=== PATIENT | female | born 1935 | race African-American/Black ===

== ENCOUNTER 2020-03-17 21:03 | Inpatient (IN) | payer OTHER ==
[~2020-03-17] VITALS: Ht 149.9 cm; Wt 109.3 kg
[2020-03-17] MEDS ORDERED: DEXAMETHASONE 4MG/ML 1ML VIAL IV ONE (23:30)
[2020-03-18 02:07] LABS: EOSINOPHILS % 0.7 % (0.0-5.0); HEMATOCRIT. 37.5 % (36.0-48.0); MEAN CORPUSCULAR HEMOGLOBIN 27.6 pg (28.0-32.0); MEAN CORPUSCULAR VOLUME 86.1 fL (81.0-99.0); MEAN PLATELET VOLUME 9.3 fl (7.4-10.4); MONOCYTES % 6.3 % (2.0-8.0); PLATELET 266 x1000/uL (130-400); RED BLOOD CELL COUNT 4.36 mill/uL (4.2-5.4); RED CELL DISTRIBUTION WIDTH 13.7 % (11.6-14.6)
[2020-03-18 02:30] LABS: CHLORIDE 110 mEq/L (98-107)
[2020-03-18] MEDS ORDERED: ENOXAPARIN 40MG/0.4ML SYR SUBCUT SCH (10:30)
[2020-03-18] MEDS ORDERED: ALBUTEROL 6.7GM HFA INHALER ORI PRN (10:30)
[2020-03-18] MEDS ORDERED: GUAIFENESIN 200MG/10ML SUGAR FREE UDC PO PRN (10:30)
[2020-03-18] MEDS ORDERED: DEXTROSE 50% WATER 50ML SYRINGE IV PRN (10:30)
[2020-03-18] MEDS ORDERED: AZITHROMYCIN 500 MG in DEXT 5% WATER 250 ML IV SCH (10:30)
[2020-03-18] MEDS ORDERED: DIPHENHYDRAMINE 50MG/ML VIAL IV PRN (10:30)
[2020-03-18] MEDS ORDERED: MAGNESIUM/ALUMINUM HYDROXIDE/SIMETHICONE 30ML UDC PO PRN (10:30)
[2020-03-18] MEDS ORDERED: LORAZEPAM 2MG/ML CPJ IV PRN (10:30)
[2020-03-18] MEDS ORDERED: CEFTRIAXONE 1 G PREMIX 50 ML IV SCH (10:30)
[2020-03-18] MEDS ORDERED: ONDANSETRON HCL 4MG/2ML INJ IV PRN (10:30)
[2020-03-18] MEDS ORDERED: DOCUSATE SODIUM 100MG CAPSULE PO PRN (10:30)
[2020-03-18] MEDS ORDERED: ENOXAPARIN 80MG/0.8ML SYR SUBCUT NR (12:45)
[2020-03-18] MEDS: CEFTRIAXONE 1,000 MG in DEXTROSE 5% WATER 50 ML IV SCH (13:00)
[2020-03-18] MEDS: INSULIN LISPRO 100 UNITS/ML SUBCUT SCH ×2 (13:20→21:18)
[2020-03-18] MEDS: BLOOD SUGAR DIAGNOSTIC STRIP TEST SCH ×2 (13:44→19:30)
[2020-03-18] MEDS: SODIUM CHLORIDE 0.9% INJ 3ML FLUSH IVF SCH (14:00)
[2020-03-19] MEDS: BLOOD SUGAR DIAGNOSTIC STRIP TEST SCH ×3 (02:12→22:06)
[2020-03-19] MEDS: INSULIN LISPRO 100 UNITS/ML SUBCUT SCH ×2 (02:12→22:37)
[2020-03-19] MEDS: SODIUM CHLORIDE 0.9% INJ 3ML FLUSH IVF SCH ×4 (02:13→21:54)
[2020-03-19 08:49] LABS: BASOPHILS % 0.4 % (0.0-2.0); EOSINOPHILS % 0.1 % (0.0-5.0); HEMATOCRIT. 34.6 % (36.0-48.0); HEMOGLOBIN. 11.6 g/dL (12.0-16.0); LYMPHOCYTES % 14.5 % (20.0-50.0); MEAN CORPUSCULAR HEMOGLOBIN 29.2 pg (28.0-32.0); MEAN CORPUSCULAR VOLUME 86.8 fL (81.0-99.0); MEAN PLATELET VOLUME 9.7 fl (7.4-10.4); MONOCYTES % 6.7 % (2.0-8.0); NEUTROPHILS % 78.3 % (40.0-76.0); PLATELET 287 x1000/uL (130-400); RED BLOOD CELL COUNT 3.99 mill/uL (4.2-5.4); RED CELL DISTRIBUTION WIDTH 13.8 % (11.6-14.6)
[2020-03-19 08:59] LABS: CHLORIDE 107 mEq/L (98-107)
[2020-03-19] MEDS ORDERED: ENOXAPARIN 40MG/0.4ML SYR SUBCUT SCH (09:00)
[2020-03-19] MEDS: CEFTRIAXONE 1,000 MG in DEXTROSE 5% WATER 50 ML IV SCH (18:14)
[2020-03-19] MEDS: MORPHINE SULFATE 2 MG/ML CPJ (NOT FOR IM USE) IV PRN (23:38)
[2020-03-20] MEDS: HYDROCODONE/ACETAMINOPHEN 5/325MG TABLET PO PRN (06:46)
[2020-03-20] MEDS: BLOOD SUGAR DIAGNOSTIC STRIP TEST SCH ×4 (07:28→21:40)
[2020-03-20] MEDS: INSULIN LISPRO 100 UNITS/ML SUBCUT SCH ×4 (07:28→21:39)
[2020-03-20] MEDS: SODIUM CHLORIDE 0.9% INJ 3ML FLUSH IVF SCH ×3 (07:35→21:38)
[2020-03-20] MEDS: AZITHROMYCIN 500MG in DEXTROSE 5% WATER 250ML IV SCH (09:30)
[2020-03-20] MEDS: ENOXAPARIN 30MG/0.3ML SYR SUBCUT SCH (09:30)
[2020-03-20 16:00] VITALS: BP_SYST 178; BP_SYST 189; BP_DIAS 64
[2020-03-20] MEDS: CEFTRIAXONE 1,000 MG in DEXTROSE 5% WATER 50 ML IV SCH (17:13)
[2020-03-20] MEDS: CLONIDINE 0.1MG TABLET PO PRN (17:18)
[2020-03-20 17:30] VITALS: BP 159/64
[2020-03-20 20:00] VITALS: BP_SYST 128; BP_SYST 168; BP_DIAS 51; BP_DIAS 71
[2020-03-20] MEDS: MORPHINE SULFATE 2 MG/ML CPJ (NOT FOR IM USE) IV PRN (21:38)
[2020-03-21] VITALS (7 sets, daily range): BP systolic 135–178; BP diastolic 60–83
[2020-03-21] MEDS: DEXAMETHASONE 10 MG/ML VIAL IV SCH ×2 (03:27→08:12)
[2020-03-21] MEDS: SODIUM CHLORIDE 0.9% INJ 3ML FLUSH IVF SCH ×3 (05:43→21:51)
[2020-03-21] MEDS: BLOOD SUGAR DIAGNOSTIC STRIP TEST SCH ×4 (07:29→21:31)
[2020-03-21 08:05] LABS: BASOPHILS % 0.2 % (0.0-2.0); EOSINOPHILS % 0.6 % (0.0-5.0); HEMATOCRIT. 34.8 % (36.0-48.0); HEMOGLOBIN. 11.5 g/dL (12.0-16.0); LYMPHOCYTES % 11.1 % (20.0-50.0); MEAN CORPUSCULAR VOLUME 87.5 fL (81.0-99.0); MEAN PLATELET VOLUME 9.6 fl (7.4-10.4); NEUTROPHILS % 85.1 % (40.0-76.0); PLATELET 274 x1000/uL (130-400); RED BLOOD CELL COUNT 3.98 mill/uL (4.2-5.4); RED CELL DISTRIBUTION WIDTH 13.8 % (11.6-14.6)
[2020-03-21] MEDS: ENOXAPARIN 30MG/0.3ML SYR SUBCUT SCH (08:13)
[2020-03-21] MEDS: AZITHROMYCIN 500MG in DEXTROSE 5% WATER 250ML IV SCH (08:13)
[2020-03-21] MEDS: INSULIN LISPRO 100 UNITS/ML SUBCUT SCH ×4 (08:14→21:51)
[2020-03-21] MEDS: CEFTRIAXONE 1,000 MG in DEXTROSE 5% WATER 50 ML IV SCH (12:03)
[2020-03-21] MEDS: HYDROCODONE/ACETAMINOPHEN 5/325MG TABLET PO PRN (17:01)
[2020-03-22] VITALS (8 sets, daily range): BP systolic 135–212; BP diastolic 57–90
[2020-03-22] MEDS: SODIUM CHLORIDE 0.9% INJ 3ML FLUSH IVF SCH ×3 (06:04→22:16)
[2020-03-22] MEDS: CLONIDINE 0.1MG TABLET PO PRN ×2 (06:04→13:55)
[2020-03-22] MEDS: BLOOD SUGAR DIAGNOSTIC STRIP TEST SCH ×4 (06:33→22:15)
[2020-03-22] MEDS: INSULIN LISPRO 100 UNITS/ML SUBCUT SCH ×4 (06:54→22:31)
[2020-03-22] MEDS: AZITHROMYCIN 500 MG TABLET PO SCH (08:08)
[2020-03-22] MEDS: DEXAMETHASONE 10 MG/ML VIAL IV SCH (08:08)
[2020-03-22] MEDS: ENOXAPARIN 40MG/0.4ML SYR SUBCUT SCH (08:08)
[2020-03-22] MEDS ORDERED: CLONIDINE 0.2MG TABLET PO SCH (15:45)
[2020-03-22] MEDS ORDERED: HYDRALAZINE 20MG/ML VIAL IV NR (18:00)
[2020-03-22] MEDS: HYDRALAZINE HCL 50MG TABLET PO SCH (22:14)
[2020-03-22] MEDS: AMLODIPINE 5MG TABLET PO SCH (22:15)
[2020-03-23] VITALS (7 sets, daily range): BP systolic 112–188; BP diastolic 56–80
[2020-03-23] MEDS: SODIUM CHLORIDE 0.9% INJ 3ML FLUSH IVF SCH ×3 (06:46→21:15)
[2020-03-23] MEDS: HYDRALAZINE HCL 50MG TABLET PO SCH (06:47)
[2020-03-23] MEDS: BLOOD SUGAR DIAGNOSTIC STRIP TEST SCH ×4 (06:47→21:15)
[2020-03-23] MEDS: DEXAMETHASONE 10 MG/ML VIAL PO SCH (08:57)
[2020-03-23] MEDS: AMLODIPINE 5MG TABLET PO SCH ×2 (08:57→21:15)
[2020-03-23] MEDS: ENOXAPARIN 40MG/0.4ML SYR SUBCUT SCH (08:58)
[2020-03-23] MEDS: AZITHROMYCIN 500 MG TABLET PO SCH (08:58)
[2020-03-23] MEDS: INSULIN LISPRO 100 UNITS/ML SUBCUT SCH ×4 (09:03→21:16)
[2020-03-23] MEDS ORDERED: AMLODIPINE 5MG TABLET PO SCH (10:00)
[2020-03-23] MEDS: HYDRALAZINE HCL 25MG TABLET PO SCH ×2 (13:04→21:15)
[2020-03-23] MEDS: ACETAMINOPHEN 325MG TABLET PO PRN (21:40)
[2020-03-24] VITALS: BP 149/65
[2020-03-24 04:00] VITALS: BP 170/79
[2020-03-24] MEDS: HYDRALAZINE HCL 25MG TABLET PO SCH ×3 (05:28→22:11)
[2020-03-24] MEDS: SODIUM CHLORIDE 0.9% INJ 3ML FLUSH IVF SCH ×3 (05:35→22:10)
[2020-03-24] MEDS: BLOOD SUGAR DIAGNOSTIC STRIP TEST SCH ×4 (06:57→21:00)
[2020-03-24 08:00] VITALS: BP 180/81
[2020-03-24] MEDS: CLONIDINE 0.1MG TABLET PO PRN (09:35)
[2020-03-24] MEDS: AMLODIPINE 5MG TABLET PO SCH ×2 (09:35→22:11)
[2020-03-24] MEDS: DEXAMETHASONE 10 MG/ML VIAL PO SCH (09:35)
[2020-03-24] MEDS: ENOXAPARIN 40MG/0.4ML SYR SUBCUT SCH (09:36)
[2020-03-24] MEDS: INSULIN LISPRO 100 UNITS/ML SUBCUT SCH ×5 (09:44→23:41)
[2020-03-24 20:00] VITALS: BP 136/47
[2020-03-25] MEDS: SODIUM CHLORIDE 0.9% INJ 3ML FLUSH IVF SCH ×3 (06:01→22:00)
[2020-03-25] MEDS: HYDRALAZINE HCL 25MG TABLET PO SCH ×3 (06:02→22:18)
[2020-03-25 08:00] VITALS: BP 140/50
[2020-03-25] MEDS: BLOOD SUGAR DIAGNOSTIC STRIP TEST SCH ×4 (08:10→21:00)
[2020-03-25] MEDS: DEXAMETHASONE 10 MG/ML VIAL PO SCH (09:21)
[2020-03-25] MEDS: AMLODIPINE 5MG TABLET PO SCH ×2 (09:21→22:11)
[2020-03-25] MEDS: ENOXAPARIN 40MG/0.4ML SYR SUBCUT SCH (09:22)
[2020-03-25] MEDS: INSULIN LISPRO 100 UNITS/ML SUBCUT SCH ×4 (09:25→22:13)
[2020-03-25] MEDS: ACETAMINOPHEN 325MG TABLET PO PRN ×2 (09:25→18:07)
[2020-03-25 20:00] VITALS: BP 142/47
[2020-03-26] MEDS: ACETAMINOPHEN 325MG TABLET PO PRN (00:38)
[2020-03-26 04:00] VITALS: BP 143/56
[2020-03-26] MEDS: HYDRALAZINE HCL 25MG TABLET PO SCH ×2 (05:05→15:01)
[2020-03-26] MEDS: SODIUM CHLORIDE 0.9% INJ 3ML FLUSH IVF SCH ×2 (05:06→15:01)
[2020-03-26] MEDS: BLOOD SUGAR DIAGNOSTIC STRIP TEST SCH ×3 (06:20→17:38)
[2020-03-26] MEDS: INSULIN LISPRO 100 UNITS/ML SUBCUT SCH ×3 (07:58→17:53)
[2020-03-26 08:11] VITALS: BP 166/60
[2020-03-26] MEDS: ENOXAPARIN 40MG/0.4ML SYR SUBCUT SCH (10:08)
[2020-03-26] MEDS: DEXAMETHASONE 10 MG/ML VIAL PO SCH (10:08)
[2020-03-26] MEDS: AMLODIPINE 5MG TABLET PO SCH (10:08)
== END 2020-03-26 19:17 | disposition home or self-care (01) | DRG 177 ==
LOC: ER 21:03 → MICUSO 03-18 00:42 → 7WST 03-20 10:59 → 6WST 03-22 00:50
PROVIDERS: ADMIT Internal Medicine; ATTEND Internal Medicine
DX: U07.1 COVID-19 (principal); J96.01 Acute respiratory failure with hypoxia; J12.82 Pneumonia due to coronavirus disease 2019; E46 Unspecified protein-calorie malnutrition; Z68.42 Body mass index [BMI] 45.0-49.9, adult; I50.9 Heart failure, unspecified; I11.0 Hypertensive heart disease with heart failure; E11.9 Type 2 diabetes mellitus without complications; Z79.899 Other long term (current) drug therapy
CPT/HCPCS: 36415; 71045; 80048; 80053; 82962; 85025; 93005; 99291; A6261; C1893; C9803; J0360; J0456; J0696; J1100; J1650; J1815; J2270; J2405; J7040; J7060; U0003